=== PATIENT | male | born 1975 | race Caucasian/White ===

== ENCOUNTER 2024-11-28 14:39 | Emergency (ER) | payer MEDICAID ==
[2024-11-28] MEDS ORDERED: oxyCODONE 5 MG/5 ML Cup PO ONE (15:40)
[2024-11-28] MEDS: oxyCODONE 5 MG Tab PO STA (16:06)
[2024-11-28] MEDS: Triamcinolone Acetonide 40 MG/ML 1 ML SDV IM ONE (16:06)
== END 2024-11-28 16:26 | disposition home or self-care (01) ==
LOC: MW.ED 14:39
DX: M10.9 Gout, unspecified (principal); I10 Essential (primary) hypertension; I48.91 Unspecified atrial fibrillation; E78.00 Pure hypercholesterolemia, unspecified; Z79.01 Long term (current) use of anticoagulants; Z79.899 Other long term (current) drug therapy
CPT/HCPCS: 96372; 99283; A9270; J3301

== ENCOUNTER 2024-12-08 15:55 | Emergency (ER) | payer MEDICAID ==
[2024-12-08] MEDS: Acetaminophen/HYDROcodone 325-10 MG Tab PO ONE (16:50)
[2024-12-08] MEDS: Acetaminophen/HYDROcodone 325-5 MG Tab PO ONE (17:04)
[2024-12-08] MEDS: Lidocaine 4% Patch TOP PRN (18:22)
== END 2024-12-08 18:25 | disposition home or self-care (01) ==
LOC: MW.ED 15:55
DX: M54.9 Dorsalgia, unspecified (principal); I10 Essential (primary) hypertension; I48.91 Unspecified atrial fibrillation; E78.00 Pure hypercholesterolemia, unspecified; Z75.3 Unavailability and inaccessibility of health-care facilities; Z79.899 Other long term (current) drug therapy; Z79.01 Long term (current) use of anticoagulants; Z79.02 Long term (current) use of antithrombotics/antiplatelets; X50.1XXA Overexertion from prolonged static or awkward postures, initial encounter
CPT/HCPCS: 72070; 72100; 99283; A9270